=== PATIENT | female | born 1950 | race Caucasian/White ===

== ENCOUNTER 2020-07-11 21:16 | Inpatient (IN) | payer MEDICARE, BC ==
[~2020-07-11] VITALS: Ht 170.2 cm; Wt 78.5 kg
[~2020-07-11 21:16] MED LIST: CALCIUM600 MG PO; COZAAR100 MG PO; ECOTRIN81 MG PO; GLUCOPHAGE XR500 MG PO; INDERAL LA60 MG PO; LEVAQUIN250 MG PO; LOVASTATIN20 MG PO; PROTONIX40 MG PO; THERAGRAN M TAB1 EA PO; TOPAMAX100 MG PO; VITAMIN D32000 UNI1 PO; ZYRTEC10 M3 PO
[2020-07-11 23:16] LABS: HEMOGLOBIN 13.9 gm/dl (12.3-15.3); RED BLOOD COUNT 4.41 M/UL (4.00-5.10); WHITE BLOOD COUNT 14.6 K/UL (4.5-11.0)
[2020-07-11 23:27] LABS: BUN/CREATININE RATIO 29 (0-10)
[2020-07-12] MEDS ORDERED: LOSARTAN POTAS100 MG PO (00:48)
[2020-07-12] MEDS ORDERED: GLUCOPHAGE 500500 MG PO (00:51)
[2020-07-12] MEDS ORDERED: ZINC50 M1 PO (00:54)
[2020-07-12 18:06] LABS: WHITE BLOOD COUNT 16.4 K/UL (4.5-11.0)
[2020-07-12 18:07] LABS: HEMOGLOBIN 11.7 gm/dl (12.3-15.3); RED BLOOD COUNT 3.73 M/UL (4.00-5.10)
[2020-07-12 18:27] LABS: BUN/CREATININE RATIO 18 (0-10)
[2020-07-12 19:25] LABS: HEMOGLOBIN 10.6 gm/dl (12.3-15.3)
[2020-07-13 04:44] LABS: HEMOGLOBIN 8.4 gm/dl (12.3-15.3); RED BLOOD COUNT 2.69 M/UL (4.00-5.10); WHITE BLOOD COUNT 11.7 K/UL (4.5-11.0)
[2020-07-13 04:55] LABS: BUN/CREATININE RATIO 26 (0-10)
[2020-07-14 03:36] LABS: HEMOGLOBIN 7.6 gm/dl (12.3-15.3); RED BLOOD COUNT 2.44 M/UL (4.00-5.10); WHITE BLOOD COUNT 9.2 K/UL (4.5-11.0)
[2020-07-14 04:04] LABS: BUN/CREATININE RATIO 26 (0-10)
[2020-07-15 02:42] LABS: HEMOGLOBIN 7.1 gm/dl (12.3-15.3); RED BLOOD COUNT 2.3 M/UL (4.00-5.10); WHITE BLOOD COUNT 9.6 K/UL (4.5-11.0)
[2020-07-15 03:04] LABS: BUN/CREATININE RATIO 20 (0-10)
[2020-07-16 02:44] LABS: HEMOGLOBIN 8.4 gm/dl (12.3-15.3); WHITE BLOOD COUNT 8.5 K/UL (4.5-11.0)
[2020-07-16 02:46] LABS: RED BLOOD COUNT 2.7 M/UL (4.00-5.10)
[2020-07-16 03:00] LABS: BUN/CREATININE RATIO 19 (0-10)
[2020-07-16] MEDS ORDERED: OXYCODONE HCL5 M1 PO ×2 (10:58→11:02)
[2020-07-16] MEDS ORDERED: AUGMENTIN 875-1 EACH PO (11:09)
[2020-07-17] MEDS ORDERED: HYDROCODON-ACE1 EAC1 PO (15:20)
== END 2020-07-16 15:40 | disposition home health service (06) | DRG 522 ==
LOC: ER1 21:16 → PROG CARE 07-12 00:17 → CDU 07-12 00:17 → M/S 07-12 17:21 → CCU 07-12 21:36 → PROG CARE 07-13 12:47
PROVIDERS: Family Medicine; Internal Medicine; Orthopaedic Surgery; ADMIT Internal Medicine
PROC: 0SR90JZ Replacement of Right Hip Joint with Synthetic Substitute, Open Approach (ICD-10-PCS; principal; 2020-07-12 13:48)
PROC: 30233N1 Transfusion of Nonautologous Red Blood Cells into Peripheral Vein, Percutaneous Approach (ICD-10-PCS; 2020-07-13)
PROC: 30233N1 Transfusion of Nonautologous Red Blood Cells into Peripheral Vein, Percutaneous Approach (ICD-10-PCS; 2020-07-15)
DX: S72.001A Fracture of unspecified part of neck of right femur, initial encounter for closed fracture (principal); D62 Acute posthemorrhagic anemia; J98.11 Atelectasis; R65.10 Systemic inflammatory response syndrome (SIRS) of non-infectious origin without acute organ dysfunction; W00.0XXA Fall on same level due to ice and snow, initial encounter; Z20.822 Contact with and (suspected) exposure to COVID-19; D72.829 Elevated white blood cell count, unspecified; M25.511 Pain in right shoulder; E11.9 Type 2 diabetes mellitus without complications; K21.9 Gastro-esophageal reflux disease without esophagitis; I10 Essential (primary) hypertension; E78.5 Hyperlipidemia, unspecified; Z90.49 Acquired absence of other specified parts of digestive tract; Y92.007 Garden or yard of unspecified non-institutional (private) residence as the place of occurrence of the external cause; Z79.82 Long term (current) use of aspirin; Z79.899 Other long term (current) drug therapy; Z90.711 Acquired absence of uterus with remaining cervical stump; Z83.3 Family history of diabetes mellitus; Z82.49 Family history of ischemic heart disease and other diseases of the circulatory system
CPT/HCPCS: 36415; 36430; 51702; 71045; 72170; 73030; 73060; 73502; 73552; 73702; 80048; 80053; 82962; 83735; 84484; 85014; 85018; 85025; 85027; 86850; 86900; 86901; 86920; 93005; 96374; 96375; 97110-GP-CQ; 97116-GP-CQ; 97162; 97165; 97530-GP-CQ; 97535; 99284; C1776; J0690; J1100; J1650; J2270; J2405; J2704; J2795; J3010; J3370; J3475; J7030; J7120; P9016; Q9967; U0002